=== PATIENT | female | born 1990 | race Hispanic/Latino ===

== ENCOUNTER 2019-01-27 22:33 | Emergency (ER) | payer SELFPAY ==
[2019-01-27 23:22] VITALS: BP 139/84
[2019-01-28] MEDS ORDERED: KEFLEX PO ONE (00:29)
[2019-01-28] MEDS ORDERED: NORCO 5/325 PO ONE (00:30)
[2019-01-28] MEDS ORDERED: IBUPROFEN PO ONE (00:30)
[2019-01-28] MEDS ORDERED: ZOFRAN ODT PO ONE (00:30)
[2019-01-28] MEDS ORDERED: XYLOCAINE 1% MPF 5 mL INFILTRATI ONE (00:30)
[2019-01-28] MEDS ORDERED: TYLENOL #3 PO ONE (02:53)
--- NOTE | 2019-01-28 02:53 | Emergency Department Report ---
ED General Adult HPI - General Chief complaint: Skin/Abscess/Foreign Body Stated complaint: BUMP ON FACE Time Seen by Provider: 01/28/19 00:20 Source: patient Mode of arrival: Ambulatory Limitations: No Limitations - History of Present Illness Initial comments: Patient is a 28-year-old white female with no past medical history presents to the ED with complaint of acute onset persistent painful swollen erythematous maculopapular fluctuant rash on the left chin and lower jaw for the last 5 days. Patient states that she initially had a toothache over 10 days ago and presented today dentist who prescribed azithromycin for her. Patient states that upon completing the course of antibiotics, a small painful papular rash appeared on her left chin that extended to the left lower jaw. Patient states that in the last 2 days the swelling, redness and pain have worsened. Patient denies fever, chills, nausea, vomiting, dizziness, headache, chest pain, hearing loss, neck pain, abdominal pain, shortness of breath or chest pain. MD Complaint: Left facial swollen painful rash -: Sudden, days(s) (5) Location: face, left Radiation: non-radiation Severity scale (0 -10): 7 Quality: aching, sharp, constant Consistency: constant Improves with: none Worsens with: eating Associated Symptoms: rash (erythematous swollen fluctuant rash on left face). denies: confusion, chest pain, cough, diaphoresis, fever/chills, headaches, loss of appetite, malaise, nausea/vomiting, seizure, shortness of breath, syncope, weakness Treatments Prior to Arrival: none - Related Data Previous Rx's Medication Instructions Recorded Last Taken Type Acetaminophen/Codeine [Tylenol 1 tab PO Q6H PRN #15 tab 01/28/19 Unknown Rx /Codeine # 3 tab] Clindamycin [Clindamycin CAP] 300 mg PO Q6HR #80 capsule 01/28/19 Unknown Rx Ibuprofen [Motrin] 600 mg PO Q8H PRN #20 tablet 01/28/19 Unknown Rx Ondansetron [Zofran Odt] 4 mg PO Q8HR #15 tab.rapdis 01/28/19 Unknown Rx Allergies Allergy/AdvReac Type Severity Reaction Status Date / Time No Known Allergies Allergy Unverified 01/27/19 23:22 ED Review of Systems ROS: Stated complaint: BUMP ON FACE Other details as noted in HPI Constitutional: denies: chills, fever Eyes: denies: eye pain, eye discharge, vision change ENT: other (left facial pain and swlling due to erythematous maculopapular fluctuant rash). denies: ear pain, throat pain Respiratory: denies: cough, shortness of breath, wheezing Cardiovascular: denies: chest pain, palpitations Endocrine: no symptoms reported Gastrointestinal: denies: abdominal pain, nausea, diarrhea Genitourinary: denies: urgency, dysuria, discharge Musculoskeletal: denies: back pain, joint swelling, arthralgia Skin: rash (erythematous swollen painful fluctuant rash on left facial area), change in color. denies: lesions Neurological: denies: headache, weakness, paresthesias Psychiatric: denies: anxiety, depression Hematological/Lymphatic: denies: easy bleeding, easy bruising ED Past Medical Hx - Past Medical History Previous Medical History?: No - Surgical History Past Surgical History?: No - Social History Smoking Status: Current Every Day Smoker Substance Use Type: None - Medications Home Medications: Home Medications Medication Instructions Recorded Confirmed Last Taken Type Acetaminophen/Codeine [Tylenol 1 tab PO Q6H PRN #15 tab 01/28/19 Unknown Rx /Codeine # 3 tab] Clindamycin [Clindamycin CAP] 300 mg PO Q6HR #80 capsule 01/28/19 Unknown Rx Ibuprofen [Motrin] 600 mg PO Q8H PRN #20 tablet 01/28/19 Unknown Rx Ondansetron [Zofran Odt] 4 mg PO Q8HR #15 tab.rapdis 01/28/19 Unknown Rx ED Physical Exam - General Limitations: No Limitations General appearance: alert, in no apparent distress - Head Head exam: Present: atraumatic, normocephalic, normal inspection - Eye Eye exam: Present: normal appearance, PERRL, EOMI. Absent: scleral icterus, conjunctival injection, periorbital swelling, periorbital tenderness Pupils: Present: normal accommodation - ENT ENT exam: Present: normal exam, normal orophraynx, mucous membranes moist, TM's normal bilaterally, normal external ear exam, other (swollen erythematous maculopapular fluctuant severely tender rash on left face) - Neck Neck exam: Present: normal inspection, full ROM, lymphadenopathy (left anterior cervical ). Absent: tenderness - Respiratory Respiratory exam: Present: normal lung sounds bilaterally, wheezes. Absent: respiratory distress, chest wall tenderness, accessory muscle use, decreased breath sounds - Cardiovascular Cardiovascular Exam: Present: regular rate, normal rhythm, normal heart sounds. Absent: systolic murmur, diastolic murmur, rubs, gallop - GI/Abdominal GI/Abdominal exam: Present: soft, normal bowel sounds. Absent: tenderness, guarding, rebound, hyperactive bowel sounds, hypoactive bowel sounds, organomegaly - Extremities Exam Extremities exam: Present: normal inspection, normal capillary refill - Back Exam Back exam: Present: normal inspection, full ROM. Absent: tenderness, CVA tenderness (L), muscle spasm, paraspinal tenderness, vertebral tenderness - Neurological Exam Neurological exam: Present: alert, oriented X3, CN II-XII intact, normal gait, reflexes normal - Psychiatric Psychiatric exam: Present: normal affect, normal mood - Skin Skin exam: Present: warm, dry, intact, normal color, rash (erythematous swollen maculopapular fluctuant rash on left facial area) ED Course Vital Signs 01/27/19 23:19 Temperature 98.7 F Pulse Rate 86 Respiratory 16 Rate Blood Pressure 139/84 O2 Sat by Pulse 98 Oximetry - Reevaluation(s) Reevaluation #1: 01/28/19 03:09 Patient is alert and oriented 3 and is not in any distress except pain. Patient was treated for pain and also given oral antibiotics in the ED. Patient had today facial abscess incised and drained. Patient tolerated the procedure well and was discharged on antibiotics and pain medications. Patient advised to return to the ED in 2 days for wound recheck and packing removal. Patient advised to return to the ED immediately if symptoms get worse. Patient was otherwise advised to follow up with her primary care physician in 7-10 days for reevaluation. - I & D Left Face Type of Procedure: Simple Site: left face Blade Size: 11 I & D Procedure: betadine prep, sterile drapes applied, sterile dressing applied, gauze wick placed Progress: Patient tolerated procedure well. Patient advised to return to the ED in 2 days for wound check ED Medical Decision Making - Medical Decision Making Patient is alert and oriented 3 and is not in any distress except pain. Patient was treated for pain and also given oral antibiotics in the ED. Patient had today facial abscess incised and drained. Patient tolerated the procedure well and was discharged on antibiotics and pain medications. Patient advised to return to the ED in 2 days for wound recheck and packing removal. Patient advised to return to the ED immediately if symptoms get worse. Patient was otherwise advised to follow up with her primary care physician in 7-10 days for reevaluation. - Differential Diagnosis facial cellulitis; Facial abscess, Acute folliculitis Critical care attestation.: If time is entered above; I have spent that time in minutes in the direct care of this critically ill patient, excluding procedure time. ED Disposition Clinical Impression: Cellulitis of face Disposition: - TO HOME OR SELFCARE Is pt being admited?: No Does the pt Need Aspirin: No Condition: Stable Instructions: Cellulitis (ED), Abscess (ED) Additional Instructions: Take medications with food, drink plenty of fluids and follow up with your primary care physician in 7-10 days for reevaluation. Return to the ED in 2 days for wound recheck and packing removal. Return to the ED immediately if symptoms get worse. Prescriptions: Clindamycin [Clindamycin CAP] 300 mg PO Q6HR #80 capsule Ibuprofen [Motrin] 600 mg PO Q8H PRN #20 tablet PRN Reason: Pain Acetaminophen/Codeine [Tylenol /Codeine # 3 tab] 1 tab PO Q6H PRN #15 tab PRN Reason: Pain , Severe (7-10) Ondansetron [Zofran Odt] 4 mg PO Q8HR #15 tab.rapdis Referrals: [facility] [Outside] - 3-5 Days Time of Disposition: 03:06 Print Language: KENYAN
== END 2019-01-28 03:15 | disposition home or self-care (01) ==
LOC: ED 22:33
DX: L03.211 Cellulitis of face (principal); F17.200 Nicotine dependence, unspecified, uncomplicated
CPT/HCPCS: Q0162

== ENCOUNTER 2019-01-30 20:36 | Emergency (ER) | payer SELFPAY ==
--- NOTE | 2019-01-30 22:53 | Event Note ---
ED Screening Note Date of service: 01/30/19 Time: 22:52 ED Screening Note: 28 y/o female here for wound check. Last seen on 01/27/19. This initial assessment/diagnostic orders/clinical plan/treatment(s) is/are subject to change based on patients health status, clinical progression and re-assessment by fellow clinical providers in the ED. Further treatment and workup at subsequent clinical providers discretion. Patient/guardian urged not to elope from the ED as their condition may be serious if not clinically assessed and managed. Initial orders include:
[2019-01-31 01:19] VITALS: BP 136/86
--- NOTE | 2019-01-31 01:33 | Emergency Department Report ---
Chief Complaint: Laceration/Recheck/Suture Stated Complaint: WOUND CHECK Time Seen by Provider: 01/31/19 00:46 - HPI History of Present Illness: 28-year-old female who presents to ED for wound check. Patient was seen on the where she had an incision and drainage with packing. Herminia patient presents to the Packing removal and wound check. Patient states she's been taking her medication as prescribed. She denies fevers/nausea or vomiting. - ROS Review of Systems: As noted in HPI - Exam Vital Signs: Vital Signs 01/30/19 01/30/19 01/31/19 20:49 22:52 01:12 Temperature 99.0 F 99 F 97.8 F Pulse Rate 107 H 101 H 67 Respiratory 18 18 18 Rate Blood Pressure 136/87 136/87 136/86 O2 Sat by Pulse 96 96 99 Oximetry Physical Exam: GENERAL: Alert and oriented x3, no apparent distress, Normal Gait, atraumatic. HEAD: Head is normocephalic and a-traumatic. NECK: Supple. Non edematous, wound noted on chin, packing removed and cleaned. SKIN: Warm and dry, No lesions, No ulceration or induration present. MSE screening note: Focused history and physical exam performed. Due to findings the following was ordered: ED Medical Decision Making - Medical Decision Making 28-year-old female presents with wound check Wound was cleaned, packing was removed. One WHILE healing. Discuss acute wound care with the patient. Discussed can apply triple antibiotic as needed. ED Disposition for MSE Clinical Impression: Visit for wound check Disposition: -01 TO HOME OR SELFCARE Is pt being admited?: No Does the pt Need Aspirin: No Condition: Stable Instructions: Acute Wound Care (ED) Additional Instructions: Make sure to follow up with the primary care physician as discussed. Take all your medications as you've been prescribed. If you have any worsening symptoms or develop new symptoms please return to ED immediately. Referrals: VIVIANA VAZQUEZ MD [Primary Care Provider] - 3-5 Days Forms: Accompanied Note, Work/School Release Form(ED) Time of Disposition: 01:33
== END 2019-01-31 02:05 | disposition home or self-care (01) ==
LOC: ED 20:36
DX: Z48.00 Encounter for change or removal of nonsurgical wound dressing (principal)